=== PATIENT | male | born 1965 | race Caucasian/White ===

== ENCOUNTER 2019-10-13 20:06 | Emergency (ER) | payer OTHER, SELFPAY ==
--- OUTSIDE RECORDS SUMMARY | 2019-10-13 20:09 | XMS REPORT ---
:1965 [facility] Address [address] [place] [address] Dr. Ernandez [address] [place] [id number] Care Team Providers Name Role Phone DR ANA JURADO Unavailable Unavailable BREANNA VELÁZQUEZ Unavailable Unavailable OSWALDO GASTELUM Unavailable Unavailable ALLYSON LAIRD Unavailable Unavailable Problems This patient has no known problems. Allergies, Adverse Reactions, Alerts This patient has no known allergies or adverse reactions. Medications This patient has no known medications. Encounters Start End Encounter Admission Attending Care Care Encounter Date/Time Date/Time Type Type Clinicians Facility Department ID 2019-06-22 2019-06-22 [place] [facility] [id number] 10:21:00 23:59:00 ANA Results Test Description Test Time Test Comments Text Results Atomic Results Result Comments CHEST 2 VIEW*GP* 2019-06-22 10:56:45 PA and lateral chest, 2 viewsLocation code: [id number] HISTORY: Chest painCOMPARISON: NoneCOMMENTS: The lungs are clear and well inflated. The costophrenic angles aresharp. The cardiomediastinal silhouette is unremarkable. Left chest dual-leadpacer is noted. The bones are intact.IMPRESSION: No acute abnormality B-TYPE NATRIURETIC FACTOR (BNP) 2018-07-07 07:59:00 Test Item Value Reference Range Comments B-TYPE NATRIURETIC PEPTIDE (BEAKER) (test fvdk=018) < pg/mL 0-100 TROPONIN [id number] 07:49:00 Test Item Value Reference Range Comments TROPONIN I (BEAKER) (test hvzp=228) < ng/mL 0.00-0.03 Troponin I (TnI) levels must be interpreted in the context of the presenting symptoms and the clinical findings. Elevated TnI levels indicate myocardial damage, but are not specific for ischemic heart disease. Elevated TnI levels are seen in patients with other cardiac conditions (including myocarditis and congestive heart failure), and slight TnI elevations occur in patients with other conditions, including sepsis, renal failure, acidosis, acute neurological disease, and persistent tachyarrhythmia.[id number] 07:40:00 Test Item Value Reference Range Comments PHOSPHORUS (BEAKER) (test wwfi=438) 3.6 mg/dL 2.3-4.7 [id number] 07:40:00 Test Item Value Reference Range Comments MAGNESIUM (BEAKER) (test intx=222) 2.1 mg/dL 1.6-2.6 BASIC METABOLIC [id number] 07:40:00 Test Item Value Reference Range Comments SODIUM (BEAKER) (test 137 meq/L 136-145 kafr=447) POTASSIUM (BEAKER) (test 3.9 meq/L 3.5-5.1 gghe=872) CHLORIDE (BEAKER) (test 104 meq/L 98-107 dcce=045) CO2 (BEAKER) (test 21 meq/L 22-29 sbmi=957) BLOOD UREA NITROGEN 13 mg/dL 7-21 (BEAKER) (test wgyh=886) CREATININE (BEAKER) (test 1.23 mg/dL 0.57-1.25 txxv=339) GLUCOSE RANDOM (BEAKER) 101 mg/dL 70-105 (test vghv=988) CALCIUM (BEAKER) (test 9.3 mg/dL 8.4-10.2 zfbr=829) EGFR (BEAKER) (test 62 mL/min/1.73 sq m ESTIMATED GFR IS NOT qvju=0457) ACCURATE CREATININE CLEARANCE IN PREDICTING GLOMERULAR FILTRATION RATE. ESTIMATED GFR IS NOT APPLICABLE FOR DIALYSIS PATIENTS. TROPONIN [id number] 00:04:00 Test Item Value Reference Range Comments TROPONIN I (BEAKER) (test xplx=778) < ng/mL 0.00-0.03 Troponin I (TnI) levels must be interpreted in the context of the presenting symptoms and the clinical findings. Elevated TnI levels indicate myocardial damage, but are not specific for ischemic heart disease. Elevated TnI levels are seen in patients with other cardiac conditions (including myocarditis and congestive heart failure), and slight TnI elevations occur in patients with other conditions, including sepsis, renal failure, acidosis, acute neurological disease, and persistent tachyarrhythmia.CREATINE KINASE (CK), TOTAL AND [id number] 15:59:00 Test Item Value Reference Range Comments CREATINE KINASE TOTAL (BEAKER) (test vjqp=409) 157 U/L 29-200 CREATINE KINASE-MB (BEAKER) (test hfve=926) 2.5 ng/mL 0.0-6.6 CREATINE KINASE-MB INDEX (BEAKER) (test cgzs=737) 1.6 % CK-MB Reference Range:<6.7 Normal6.7-10.0 Borderline>10.0 AbnormalTROPONIN [id number] 15:59:00 Test Item Value Reference Range Comments TROPONIN I (BEAKER) (test snnc=909) < ng/mL 0.00-0.03 Troponin I (TnI) levels must be interpreted in the context of the presenting symptoms and the clinical findings. Elevated TnI levels indicate myocardial damage, but are not specific for ischemic heart disease. Elevated TnI levels are seen in patients with other cardiac conditions (including myocarditis and congestive heart failure), and slight TnI elevations occur in patients with other conditions, including sepsis, renal failure, acidosis, acute neurological disease, and persistent tachyarrhythmia.BASIC METABOLIC [id number] 15:50:00 Test Item Value Reference Range Comments SODIUM (BEAKER) (test 138 meq/L 136-145 yxmq=940) POTASSIUM (BEAKER) (test 3.8 meq/L 3.5-5.1 tycd=042) CHLORIDE (BEAKER) (test 105 meq/L 98-107 ukai=773) CO2 (BEAKER) (test 21 meq/L 22-29 wqyi=248) BLOOD UREA NITROGEN 11 mg/dL 7-21 (BEAKER) (test jwil=795) CREATININE (BEAKER) (test 1.25 mg/dL 0.57-1.25 apgy=599) GLUCOSE RANDOM (BEAKER) 145 mg/dL 70-105 (test oazr=094) CALCIUM (BEAKER) (test 9.7 mg/dL 8.4-10.2 mlfk=580) EGFR (BEAKER) (test 61 mL/min/1.73 sq m ESTIMATED GFR IS NOT xrlw=3835) ACCURATE CREATININE CLEARANCE IN PREDICTING GLOMERULAR FILTRATION RATE. ESTIMATED GFR IS NOT APPLICABLE FOR DIALYSIS PATIENTS. CBC W/PLT COUNT & AUTO [id number] 15:28:00 Test Item Value Reference Range Comments WHITE BLOOD CELL COUNT (BEAKER) (test lvqq=086) 6.2 K/ L 3.5-10.5 RED BLOOD CELL COUNT (BEAKER) (test mpzk=709) 5.60 M/ L 4.63-6.08 HEMOGLOBIN (BEAKER) (test grjk=205) 17.2 GM/DL 13.7-17.5 HEMATOCRIT (BEAKER) (test lkva=916) 50.2 % 40.1-51.0 MEAN CORPUSCULAR VOLUME (BEAKER) (test svql=636) 89.6 fL 79.0-92.2 MEAN CORPUSCULAR HEMOGLOBIN (BEAKER) (test 30.7 pg 25.7-32.2 tkny=838) MEAN CORPUSCULAR HEMOGLOBIN CONC (BEAKER) (test 34.3 GM/DL 32.3-36.5 cjms=242) RED CELL DISTRIBUTION WIDTH (BEAKER) (test 12.3 % 11.6-14.4 lwiw=298) PLATELET COUNT (BEAKER) (test kjlu=050) 189 K/CU MM 150-450 MEAN PLATELET VOLUME (BEAKER) (test vskl=069) 9.6 fL 9.4-12.4 NUCLEATED RED BLOOD CELLS (BEAKER) (test 0 /100 WBC 0-0 hwfe=066) NEUTROPHILS RELATIVE PERCENT (BEAKER) (test 56 % hnit=088) LYMPHOCYTES RELATIVE PERCENT (BEAKER) (test 34 % wxsx=333) MONOCYTES RELATIVE PERCENT (BEAKER) (test 5 % exxf=271) EOSINOPHILS RELATIVE PERCENT (BEAKER) (test 4 % iqof=453) BASOPHILS RELATIVE PERCENT (BEAKER) (test 1 % utgm=832) NEUTROPHILS ABSOLUTE COUNT (BEAKER) (test 3.47 K/ L 1.78-5.38 wdif=467) LYMPHOCYTES ABSOLUTE COUNT (BEAKER) (test 2.09 K/ L 1.32-3.57 kgqb=519) MONOCYTES ABSOLUTE COUNT (BEAKER) (test 0.30 K/ L 0.30-0.82 famj=434) EOSINOPHILS ABSOLUTE COUNT (BEAKER) (test 0.23 K/ L 0.04-0.54 mnqn=290) BASOPHILS ABSOLUTE COUNT (BEAKER) (test 0.05 K/ L 0.01-0.08 ihlf=429) IMMATURE GRANULOCYTES-RELATIVE PERCENT (BEAKER) 0 % 0-1 (test cbhv=8975) RAD, CHEST, 1 VIEW, NON [id number] 15:27:00Reason for exam:->CHEST PAINShould this be performed at the bedside?->YesFINAL REPORT EXAM: Frontal chest radiograph HISTORY PROVIDED: Chest pain COMPARISON : 01/29/2018 IMPRESSION:There is biapical pleural-parenchymal nodular thickening which can be further evaluated with CT if not already performed. There is elevation of the right hemidiaphragm. Unchanged left chest wall pacing device with the lead tip projecting over the right atrium and right ventricle. There are prominent interstitial markings bilaterally as before. No pneumothorax or significant pleural fluid. The cardiac silhouette is prominent at least partially explained by AP technique. No acute osseous abnormality. Signed: Arvin Padgett MDReport Verified Date/Time: 07/06/2018 15:27:17 Reading Location: [facility] Reading Room Electronically signed by: ARVIN PADGETT on07/06/2018 03:27 PMRAD, CHEST, 1 VIEW, NON [id number] 08:26: 00Reason for exam:->PPM placementFINAL REPORT Comparison: 01/28/2018 TECHNIQUE: Single view of the chest FINDINGS: Lung volumes are low, grossly clear. Cardiac silhouette is magnified by technique. Left- sided pacing device again noted. Signed: Moisés Elizabeth MDReport Verified Date/Time : 01/29/2018 08:26:05 Reading Location: [address] Reading Room Electronically signed by: MOISÉS ELIZABETH M.D. on01/29/2018 08:26 [id number] 04:52:00 Test Item Value Reference Range Comments SODIUM (BEAKER) (test avwj=513) 138 meq/L 136-145 POTASSIUM (BEAKER) (test jyrb=940) 3.9 meq/L 3.5-5.1 CHLORIDE (BEAKER) (test nywk=310) 104 meq/L 98-107 CO2 (BEAKER) (test igyd=129) 26 meq/L 22-29 BUN AND [id number] 04:52:00 Test Item Value Reference Range Comments BLOOD UREA NITROGEN 13 mg/dL 7-21 (BEAKER) (test ftyd=133) CREATININE (BEAKER) (test 1.16 mg/dL 0.57-1.25 rulz=602) EGFR (BEAKER) (test 67 mL/min/1.73 sq m ESTIMATED GFR IS NOT pbtk=9356) ACCURATE CREATININE CLEARANCE IN PREDICTING GLOMERULAR FILTRATION RATE. ESTIMATED GFR IS NOT APPLICABLE FOR DIALYSIS PATIENTS. CBC (HEMOGRAM ONLY)2018-01-29 04:26:00 Test Item Value Reference Range Comments WHITE BLOOD CELL COUNT (BEAKER) (test ctel=581) 8.6 K/ L 3.5-10.5 RED BLOOD CELL COUNT (BEAKER) (test nsah=739) 4.74 M/ L 4.63-6.08 HEMOGLOBIN (BEAKER) (test xaom=243) 14.6 GM/DL 13.7-17.5 HEMATOCRIT (BEAKER) (test bxqf=234) 42.1 % 40.1-51.0 MEAN CORPUSCULAR VOLUME (BEAKER) (test boxb=550) 88.8 fL 79.0-92.2 MEAN CORPUSCULAR HEMOGLOBIN (BEAKER) (test 30.8 pg 25.7-32.2 byzd=918) MEAN CORPUSCULAR HEMOGLOBIN CONC (BEAKER) (test 34.7 GM/DL 32.3-36.5 ppww=722) RED CELL DISTRIBUTION WIDTH (BEAKER) (test 12.5 % 11.6-14.4 jqdn=026) PLATELET COUNT (BEAKER) (test hnye=367) 187 K/CU MM 150-450 MEAN PLATELET VOLUME (BEAKER) (test xgzg=668) 9.7 fL 9.4-12.4 NUCLEATED RED BLOOD CELLS (BEAKER) (test 0 /100 WBC 0-0 pmvx=259) RAD, CHEST, 1 VIEW, NON [id number] 16:17:00Reason for exam:->PPM placementFINAL REPORT TECHNIQUE: Frontal chest radiograph dated 01/28/2018. CLINICAL HISTORY: PPM placement COMPARISON STUDY: Chest radiograph dated 08/26/2017 IMPRESSION:There has been interval placement of a dual chamber, left-sided pacemaker. There are ill-defined airspace opacities which are likely pulmonary edema. No pleural effusion or pneumothorax. Cardiomediastinal silhouette is normal in size. No fracture. Signed: Aiyana Neumann MDReport Verified Date/Time: 01/28/2018 16:17:36 Reading Location: [facility] Radiology Reading Room HEMOGLOBIN [id number] 09:35:00 Test Item Value Reference Range Comments HEMOGLOBIN A1C (BEAKER) (test dzcg=513) 5.2 % 4.3-6.1 [id number] 07:00:00 Test Item Value Reference Range Comments MAGNESIUM (BEAKER) (test wroo=171) 2.0 mg/dL 1.6-2.6 BASIC METABOLIC [id number] 07:00:00 Test Item Value Reference Range Comments SODIUM (BEAKER) (test 138 meq/L 136-145 unia=875) POTASSIUM (BEAKER) (test 3.5 meq/L 3.5-5.1 jwar=021) CHLORIDE (BEAKER) (test 107 meq/L 98-107 ufne=577) CO2 (BEAKER) (test 22 meq/L 22-29 xnvl=991) BLOOD UREA NITROGEN 18 mg/dL 7-21 (BEAKER) (test svig=953) CREATININE (BEAKER) (test 1.40 mg/dL 0.57-1.25 seri=290) GLUCOSE RANDOM (BEAKER) 104 mg/dL 70-105 (test ifcc=447) CALCIUM (BEAKER) (test 8.7 mg/dL 8.4-10.2 vcga=262) EGFR (BEAKER) (test 54 mL/min/1.73 sq m ESTIMATED GFR IS NOT kanc=7524) ACCURATE CREATININE CLEARANCE IN PREDICTING GLOMERULAR FILTRATION RATE. ESTIMATED GFR IS NOT APPLICABLE FOR DIALYSIS PATIENTS. TROPONIN [id number] 06:36:00 Test Item Value Reference Range Comments TROPONIN I (BEAKER) (test awcc=831) < ng/mL 0.00-0.03 Troponin I (TnI) levels must be interpreted in the context of the presenting symptoms and the clinical findings. Elevated TnI levels indicate myocardial damage, but are not specific for ischemic heart disease. Elevated TnI levels are seen in patients with other cardiac conditions (including myocarditis and congestive heart failure), and slight TnI elevations occur in patients with other conditions, including sepsis, renal failure, acidosis, acute neurological disease, and persistent tachyarrhythmia.TROPONIN [id number] 00:58:00 Test Item Value Reference Range Comments TROPONIN I (BEAKER) (test nznf=189) 0.01 ng/mL 0.00-0.03 Troponin I (TnI) levels must be interpreted in the context of the presenting symptoms and the clinical findings. Elevated TnI levels indicate myocardial damage, but are not specific for ischemic heart disease. Elevated TnI levels are seen in patients with other cardiac conditions (including myocarditis and congestive heart failure), and slight TnI elevations occur in patients with other conditions, including sepsis, renal failure, acidosis, acute neurological disease, and persistent tachyarrhythmia.LIPID [id number] 19:53:00 Test Item Value Reference Range Comments TRIGLYCERIDES (BEAKER) (test tnns=866) 133 mg/dL CHOLESTEROL (AKER) (test tqtu=275) 143 mg/dL HDL CHOLESTEROL (AKER) (test btyu=570) 32 mg/dL LDL CHOLESTEROL CALCULATED (AKER) (test 84 mg/dL trlu=463) Triglyceride Reference Range: Low Risk <150 Borderline 150- 199 High Risk 200-499 Very High Risk >=500Cholesterol Reference Range: Low Risk <200 Borderline 200-239 High Risk > 240HDL Cholesterol Reference Range: Low Risk >=60 High Risk <40LDL Cholesterol Reference Range: Optimal <100 Near Optimal 100-129 Borderline 130-159 High 160-189 Very High >=190B-TYPE NATRIURETIC FACTOR (BNP)2017-08-26 16:46:00 Test Item Value Reference Range Comments B-TYPE NATRIURETIC PEPTIDE (BEAKER) (test qyqu=707) 50 pg/mL 0-100 CREATINE KINASE (CK), TOTAL AND [id number] 16:46:00 Test Item Value Reference Range Comments CREATINE KINASE TOTAL (BEAKER) (test dfat=429) 243 U/L 29-200 CREATINE KINASE-MB (BEAKER) (test zpbb=940) 2.2 ng/mL 0.0-6.6 CREATINE KINASE-MB INDEX (BEAKER) (test eteo=557) 0.9 % CK-MB Reference Range:<6.7 Normal6.7-10.0 Borderline>10.0 AbnormalTROPONIN [id number] 16:46:00 Test Item Value Reference Range Comments TROPONIN I (BEAKER) (test qhhw=734) < ng/mL 0.00-0.03 Troponin I (TnI) levels must be interpreted in the context of the presenting symptoms and the clinical findings. Elevated TnI levels indicate myocardial damage, but are not specific for ischemic heart disease. Elevated TnI levels are seen in patients with other cardiac conditions (including myocarditis and congestive heart failure), and slight TnI elevations occur in patients with other conditions, including sepsis, renal failure, acidosis, acute neurological disease, and persistent tachyarrhythmia.[id number] 16:39:00 Test Item Value Reference Range Comments MAGNESIUM (BEAKER) (test 2.2 mg/dL 1.6-2.6 Specimen slightly hemolyzed vlrn=971) BASIC METABOLIC [id number] 16:39:00 Test Item Value Reference Range Comments SODIUM (BEAKER) (test 140 meq/L 136-145 xmtv=111) POTASSIUM (BEAKER) (test 3.9 meq/L 3.5-5.1 Specimen slightly onpp=460) hemolyzed CHLORIDE (BEAKER) (test 109 meq/L 98-107 tidr=772) CO2 (BEAKER) (test 21 meq/L 22-29 iqgr=979) BLOOD UREA NITROGEN 18 mg/dL 7-21 (BEAKER) (test uhme=868) CREATININE (BEAKER) (test 1.63 mg/dL 0.57-1.25 Specimen slightly pgpm=251) hemolyzed GLUCOSE RANDOM (BEAKER) 101 mg/dL 70-105 (test wvit=321) CALCIUM (BEAKER) (test 9.7 mg/dL 8.4-10.2 mjyi=149) EGFR (BEAKER) (test 45 mL/min/1.73 sq m ESTIMATED GFR IS NOT liey=2797) ACCURATE CREATININE CLEARANCE IN PREDICTING GLOMERULAR FILTRATION RATE. ESTIMATED GFR IS NOT APPLICABLE FOR DIALYSIS PATIENTS. CBC W/PLT COUNT & AUTO [id number] 16:05:00 Test Item Value Reference Range Comments WHITE BLOOD CELL COUNT (BEAKER) (test aapj=696) 7.7 K/ L 3.5-10.5 RED BLOOD CELL COUNT (BEAKER) (test jrpc=098) 4.91 M/ L 4.63-6.08 HEMOGLOBIN (BEAKER) (test fght=820) 15.5 GM/DL 13.7-17.5 HEMATOCRIT (BEAKER) (test unbj=072) 44.5 % 40.1-51.0 MEAN CORPUSCULAR VOLUME (BEAKER) (test urnh=821) 90.6 fL 79.0-92.2 MEAN CORPUSCULAR HEMOGLOBIN (BEAKER) (test 31.6 pg 25.7-32.2 emdn=528) MEAN CORPUSCULAR HEMOGLOBIN CONC (BEAKER) (test 34.8 GM/DL 32.3-36.5 xqqb=209) RED CELL DISTRIBUTION WIDTH (BEAKER) (test 12.3 % 11.6-14.4 hyeq=860) PLATELET COUNT (BEAKER) (test ndnx=286) 247 K/CU MM 150-450 MEAN PLATELET VOLUME (BEAKER) (test pwnv=226) 10.1 fL 9.4-12.4 NUCLEATED RED BLOOD CELLS (BEAKER) (test 0 /100 WBC 0-0 qvsz=988) NEUTROPHILS RELATIVE PERCENT (BEAKER) (test 64 % iikz=586) LYMPHOCYTES RELATIVE PERCENT (BEAKER) (test 25 % sitm=680) MONOCYTES RELATIVE PERCENT (BEAKER) (test 8 % pxkw=974) EOSINOPHILS RELATIVE PERCENT (BEAKER) (test 2 % cqbu=883) BASOPHILS RELATIVE PERCENT (BEAKER) (test 0 % dppw=739) NEUTROPHILS ABSOLUTE COUNT (BEAKER) (test 4.95 K/ L 1.78-5.38 ofgb=874) LYMPHOCYTES ABSOLUTE COUNT (BEAKER) (test 1.92 K/ L 1.32-3.57 kjit=253) MONOCYTES ABSOLUTE COUNT (BEAKER) (test 0.62 K/ L 0.30-0.82 pquz=427) EOSINOPHILS ABSOLUTE COUNT (BEAKER) (test 0.16 K/ L 0.04-0.54 naoe=658) BASOPHILS ABSOLUTE COUNT (BEAKER) (test 0.01 K/ L 0.01-0.08 ffcn=304) IMMATURE GRANULOCYTES-RELATIVE PERCENT (BEAKER) 1 % 0-1 (test doys=8015) PT/[id number] 15:58:00 Test Item Value Reference Range Comments PROTIME (BEAKER) (test qswh=909) 13.5 seconds 11.7-14.7 INR (BEAKER) (test blrb=308) 1.0 <=5.9 PARTIAL THROMBOPLASTIN TIME (BEAKER) (test 27.0 seconds 22.5-36.0 sctq=628) RECOMMENDED COUMADIN/WARFARIN INR THERAPY RANGESSTANDARD DOSE: 2.0 - 3.0 Includes: PROPHYLAXIS forvenous thrombosis, systemic embolization; TREATMENT for venous thrombosis and/or pulmonary embolus.HIGH RISK: Target INR is 2.5-3.5 for patients with mechanical heart valves.RAD, CHEST, 1 VIEW, NON [id number] 15:47:00Reason for exam:->CHEST PAINFINAL REPORT Chest, frontal, 2 images. History provided: Chest pain. Comparison: 09/25/2007. Findings: The lungs are clear without evidence of focal consolidation. No pneumothoraxor significant pleural fluid is identified. The cardiomediastinal silhouette is within normal limits. No acute osseous abnormality is identified. The soft tissues are unremarkable. IMPRESSION: No acutecardiopulmonary disease. Signed: Arvin Padgett MDReport Verified Date/Time: 08/26/2017 15:47:33 Reading Location: [facility] Reading Room
[2019-10-13] MEDS ORDERED: ASPIRIN 81 MG CHEWABLE TABLET ONE (20:47)
[2019-10-13] MEDS ORDERED: MORPHINE 4 MG/ML SYR ONE (20:48)
[2019-10-13] MEDS ORDERED: ONDANSETRON 4 MG/2 ML VIAL ONE (20:48)
[2019-10-13] MEDS ORDERED: ENOXAPARIN 100 MG/ML SYR SQ ONE (20:48)
[2019-10-13] MEDS ORDERED: METOPROLOL TAR 50 MG TAB ONE (20:48)
[2019-10-13] MEDS ORDERED: FAMOTIDINE 20 MG/2 ML VIAL IV ONE (20:49)
[2019-10-13] MEDS ORDERED: ENOXAPARIN 30 MG/0.3 ML SQ ONE (20:49)
[2019-10-13 20:52] LABS: Absolute Lymphocytes (CBC) 2.4 K/uL (0.7-4.9); Basophils % 1.1 % (0-1.3); Hematocrit 49.4 % (39.6-49.0); Lymphocytes % 35.6 % (15.3-44.8); MPV 8.6 fL (7.6-11.3); Protime INR 0.98; RBC Red Blood Cell Count 5.41 M/uL (4.33-5.43)
--- NOTE | 2019-10-13 21:05 | ER ---
Nurse's Notes [facility] Name: Teodoro Kwon Age: 53 yrs Sex: Male : 1965 Arrival Date: 10/13/2019 Time: 20:17 Bed 13 Private MD: Diagnosis: Chest pain, unspecified;Angina pectoris;Essential (primary) hypertension;Obesity, unspecified Presentation: 10/13 20:22 Presenting complaint: Patient states: Reports he started having off and on chest pain ea since yesterday, pt reports he took a nitro today around 6 PM without relief. Pt reports the pain feels like crushing sharp pain and it radiated to right arm. Pain rated 8/10. Transition of care: patient was not received from another setting of care. Onset of symptoms was October 13, 2019. Risk Assessment: Do you want to hurt yourself or someone else? Patient reports no desire to harm self or others. Initial Sepsis Screen: Does the patient meet any 2 criteria? No. Patient's initial sepsis screen is negative. Does the patient have a suspected source of infection? No. Patient's initial sepsis screen is negative. Care prior to arrival: Medication(s) given: nitro. 20:22 Method Of Arrival: Wheelchair ea 20:22 Acuity: CARIDAD 3 ea Historical: - Allergies: 20:26 Iodine; ea 20:26 SHELLFISH; ea 20:26 Adhesives; ea - Home Meds: 21:27 aspirin 81 mg Oral chew 1 tab once daily [Active]; metoprolol tartrate 25 mg Oral tab 1 ca1 tab once daily [Active]; fenofibrate 160 mg oral tab 1 tab once daily [Active]; atorvastatin 40 mg oral tab 1 tab once daily [Active]; furosemide 40 mg Oral tab 1 tab once daily [Active]; hydralazine 50 mg Oral tab 1 tab daily [Active]; isosorbide mononitrate 30 mg Oral Tb24 1 tab once daily [Active]; BRILINTA 90 mg oral tab 1 tab daily [Active]; amlodipine 5 mg tab 1 tab once daily [Active]; - PMHx: 20:26 Hypertension; Hyperlipidemia; ea - PSHx: 20:26 L bicep repair; ankle repair; Lumbar fusion; Appendectomy; Heart stents; ea - Immunization history:: Adult Immunizations up to date. - Social history:: Smoking status: Patient uses tobacco products, denies chronic smoking, but will smoke occasionally. - Ebola Screening: : No symptoms or risks identified at this time. - Family history:: not pertinent. Screenin:33 Abuse screen: Denies threats or abuse. Denies injuries from another. Nutritional ca1 screening: No deficits noted. Tuberculosis screening: No symptoms or risk factors identified. Fall Risk None identified. Assessment: 20:33 General: Appears in no apparent distress. comfortable, Behavior is calm, cooperative, ca1 appropriate for age. Pain: Complains of pain in chest Pain radiates to left arm Pain currently is 3 out of 10 on a pain scale. at worst was 8 out of 10 on a pain scale. Quality of pain is described as crushing, heavy, sharp, Pain began 1 day ago. Is intermittent. Neuro: Level of Consciousness is awake, alert, obeys commands, Oriented to person, place, time, situation. Neuro: Reports dizziness. Cardiovascular: Reports lightheadedness. Cardiovascular: Heart tones S1 S2 present Capillary refill < 3 seconds Patient's skin is warm and dry. Rhythm is Respiratory: Airway is patent Respiratory effort is even, unlabored, Respiratory pattern is regular, symmetrical, Breath sounds are clear bilaterally. GI: Abdomen is round non-distended, obese, Bowel sounds present X 4 quads. Abd is soft and non tender X 4 quads. Reports nausea. : No deficits noted. No signs and/or symptoms were reported regarding the genitourinary system. EENT: No deficits noted. No signs and/or symptoms were reported regarding the EENT system. Derm: Skin is intact, is healthy with good turgor, Skin is pink, warm \T\ dry. Musculoskeletal: Circulation, motion, and sensation intact. Capillary refill < 3 seconds, Range of motion: intact in all extremities. 21:25 Reassessment: Patient appears in no apparent distress at this time. Patient and/or ca1 family updated on plan of care and expected duration. Pain level reassessed. Patient is alert, oriented x 3, equal unlabored respirations, skin warm/dry/pink. 22:30 Reassessment: Patient appears in no apparent distress at this time. No changes from wh previously documented assessment. Patient and/or family updated on plan of care and expected duration. Pain level reassessed. Patient is alert, oriented x 3, equal unlabored respirations, skin warm/dry/pink. 23:47 Reassessment: Patient appears in no apparent distress at this time. No changes from previously documented assessment. Patient and/or family updated on plan of care and expected duration. Pain level reassessed. Patient is alert, oriented x 3, equal unlabored respirations, skin warm/dry/pink. Report Given to Amy Howe RN Patient denies pain at this time. Vital Signs: 20:24 BP 159 / 97; Pulse 84; Resp 23; Temp 98.7; Pulse Ox 98% on R/A; Weight 136.08 kg; ea Height 6 ft. (182.88 cm); Pain 8/10; 21:17 BP 153 / 96; Pulse 74; Resp 16; Pulse Ox 97% on R/A; wh 22:30 BP 134 / 95; Pulse 60; Resp 16; Pulse Ox 96% on R/A; wh 23:48 BP 143 / 107; Pulse 59; Resp 15; Pulse Ox 98% ; wh 20:24 Body Mass Index 40.69 (136.08 kg, 182.88 cm) ED Course: 20:17 Patient arrived in ED. cf2 20:21 Marcia Tapia, JOEY is Primary Nurse. ca1 20:24 Triage completed. ea 20:25 Arm band placed on right wrist. Patient placed in an exam room, on a stretcher, on ea surveillance system monitor, on pulse oximetry. 20:32 No provider procedures requiring assistance completed. Initial lab(s) drawn, by ma, ca1 sent to lab. Inserted saline lock: 20 gauge in right antecubital area, using aseptic technique. Blood collected. Patient maintains SpO2 saturation greater than 95% on room air. 20:33 Patient has correct armband on for positive identification. Placed in gown. Bed in low ca1 position. Call light in reach. Side rails up X2. monitoring manager on. Pulse ox on. NIBP on. Warm blanket given. 20:41 Fausto Zapata MD is Attending Physician. [facility] 20:48 XRAY Chest (1 view) In Process Unspecified. EDMS 22:03 Report given to JOEY Rivera. ca1 23:51 Patient transferred, IV remains in place. Administered Medications: 20:45 Drug: Aspirin Chewable Tablet 324 mg Route: PO; ca1 22:02 Follow up: Response: No adverse reaction ca1 20:45 Drug: Lopressor (metoprolol TARTRATE) 50 mg Route: PO; ca1 22:02 Follow up: Response: No adverse reaction ca1 20:47 Drug: Zofran 4 mg Route: IVP; Site: right antecubital; ca1 22:02 Follow up: Response: No adverse reaction; Nausea is decreased ca1 20:50 Drug: morphine 2 mg {Note: RASS - 0.} Route: IVP; Site: right antecubital; ca1 20:52 Drug: Pepcid 20 mg Route: IVP; Site: right antecubital; ca1 22:02 Follow up: Response: No adverse reaction ca1 21:00 Drug: Lovenox 1 mg/kg Route: Sub-Q; Site: abdomen; ca1 22:02 Follow up: Response: No adverse reaction ca1 21:03 Drug: PlaVIX 300 mg Route: PO; ca1 22:03 Follow up: Response: No adverse reaction ca1 21:04 Drug: morphine 2 mg Route: IVP; Site: right antecubital; ca1 22:02 Follow up: Response: No adverse reaction; Pain is decreased; RASS: Alert and Calm (0) ca1 22:43 Drug: morphine 2 mg Route: IVP; Site: right antecubital; 23:51 Follow up: Response: No adverse reaction; Pain is decreased; RASS: Alert and Calm (0) Outcome: 21:04 ER care complete, transfer ordered by MD. garcia 23:50 Transferred by ground EMS to [facility], Transfer form completed. X-rays sent w/ patient. Note: Report given to [facility] 23:50 Condition: stable 23:50 Instructed on the need for transfer. 23:52 Patient left the ED. Signatures: Dispatcher [employer] EDAR Fausto Zapata MD MD cha Antunez, Elena RN Miguel Preston ea Marcia Tapia RN RN ca1 Frazier, Celesta cf2 Corrections: (The following items were deleted from the chart) 20:38 20:33 Cardiovascular: Heart tones S1 S2 present Capillary refill < 3 seconds Patient's ca1 skin is warm and dry. Rhythm is sinus rhythm ca1
--- NOTE | 2019-10-13 21:06 | EDPHYS ---
Physician Documentation [facility] Name: Teodoro Kwon Age: 53 yrs Sex: Male : 1965 Arrival Date: 10/13/2019 Time: 20:17 Bed 13 Private MD: ED Physician Fausto Zapata HPI: 10/13 21:00 This 53 yrs old Male presents to ER via Wheelchair with complaints of Chest jose Pain. 21:00 The patient or guardian reports chest pain that is located primarily in the substernal jose area. Onset: yesterday. The pain radiates to the left arm. Associated signs and symptoms: Pertinent positives: dizziness, lightheadedness, nausea, shortness of breath. The chest pain is described as a heaviness, a pressure. Duration: The patient or guardian reports multiple episodes, with no pattern. Severity of pain: At its worst the pain was moderate in the emergency department the pain is unchanged. The patient has not experienced similar symptoms in the past. Historical: - Allergies: 20:26 Iodine; ea 20:26 SHELLFISH; ea 20:26 Adhesives; ea - Home Meds: 21:27 aspirin 81 mg Oral chew 1 tab once daily [Active]; metoprolol tartrate 25 mg Oral tab 1 ca1 tab once daily [Active]; fenofibrate 160 mg oral tab 1 tab once daily [Active]; atorvastatin 40 mg oral tab 1 tab once daily [Active]; furosemide 40 mg Oral tab 1 tab once daily [Active]; hydralazine 50 mg Oral tab 1 tab daily [Active]; isosorbide mononitrate 30 mg Oral Tb24 1 tab once daily [Active]; BRILINTA 90 mg oral tab 1 tab daily [Active]; amlodipine 5 mg tab 1 tab once daily [Active]; - PMHx: 20:26 Hypertension; Hyperlipidemia; ea - PSHx: 20:26 L bicep repair; ankle repair; Lumbar fusion; Appendectomy; Heart stents; ea - Immunization history:: Adult Immunizations up to date. - Social history:: Smoking status: Patient uses tobacco products, denies chronic smoking, but will smoke occasionally. - Ebola Screening: : No symptoms or risks identified at this time. - Family history:: not pertinent. ROS: 21:01 Constitutional: Negative for fever, chills, and weight loss, Eyes: Negative for injury, jose pain, redness, and discharge, ENT: Negative for injury, pain, and discharge, Neck: Negative for injury, pain, and swelling, Respiratory: Negative for shortness of breath, cough, wheezing, and pleuritic chest pain, Abdomen/GI: Negative for abdominal pain, nausea, vomiting, diarrhea, and constipation, Back: Negative for injury and pain, : Negative for injury, bleeding, discharge, and swelling, MS/Extremity: Negative for injury and deformity, Skin: Negative for injury, rash, and discoloration, Neuro: Negative for headache, weakness, numbness, tingling, and seizure, Psych: Negative for depression, anxiety, suicide ideation, homicidal ideation, and hallucinations, Allergy/Immunology: Negative for hives, rash, and allergies, Endocrine: Negative for neck swelling, polydipsia, polyuria, polyphagia, and marked weight changes, Hematologic/Lymphatic: Negative for swollen nodes, abnormal bleeding, and unusual bruising. 21:01 Cardiovascular: Positive for chest pain, of the chest. Exam: 21:01 Constitutional: This is a well developed, well nourished patient who is awake, alert, jose and in no acute distress. Head/Face: Normocephalic, atraumatic. Eyes: Pupils equal round and reactive to light, extra-ocular motions intact. Lids and lashes normal. Conjunctiva and sclera are non-icteric and not injected. Cornea within normal limits. Periorbital areas with no swelling, redness, or edema. ENT: Nares patent. No nasal discharge, no septal abnormalities noted. Tympanic membranes are normal and external auditory canals are clear. Oropharynx with no redness, swelling, or masses, exudates, or evidence of obstruction, uvula midline. Mucous membranes moist. Neck: Trachea midline, no thyromegaly or masses palpated, and no cervical lymphadenopathy. Supple, full range of motion without nuchal rigidity, or vertebral point tenderness. No Meningismus. Chest/axilla: Normal chest wall appearance and motion. Nontender with no deformity. No lesions are appreciated. Cardiovascular: Regular rate and rhythm with a normal S1 and S2. No gallops, murmurs, or rubs. Normal PMI, no JVD. No pulse deficits. Respiratory: Lungs have equal breath sounds bilaterally, clear to auscultation and percussion. No rales, rhonchi or wheezes noted. No increased work of breathing, no retractions or nasal flaring. Abdomen/GI: Soft, non-tender, with normal bowel sounds. No distension or tympany. No guarding or rebound. No evidence of tenderness throughout. Back: No spinal tenderness. No costovertebral tenderness. Full range of motion. Male : Normal genitalia with no discharge or lesions. Skin: Warm, dry with normal turgor. Normal color with no rashes, no lesions, and no evidence of cellulitis. MS/ Extremity: Pulses equal, no cyanosis. Neurovascular intact. Full, normal range of motion. Neuro: Awake and alert, GCS 15, oriented to person, place, time, and situation. Cranial nerves II-XII grossly intact. Motor strength 5/5 in all extremities. Sensory grossly intact. Cerebellar exam normal. Normal gait. Psych: Awake, alert, with orientation to person, place and time. Behavior, mood, and affect are within normal limits. Vital Signs: 20:24 BP 159 / 97; Pulse 84; Resp 23; Temp 98.7; Pulse Ox 98% on R/A; Weight 136.08 kg; ea Height 6 ft. (182.88 cm); Pain 8/10; 21:17 BP 153 / 96; Pulse 74; Resp 16; Pulse Ox 97% on R/A; wh 22:30 BP 134 / 95; Pulse 60; Resp 16; Pulse Ox 96% on R/A; wh 23:48 BP 143 / 107; Pulse 59; Resp 15; Pulse Ox 98% ; wh 20:24 Body Mass Index 40.69 (136.08 kg, 182.88 cm) ea MDM: 20:41 Patient medically screened. [facility] 21:02 Data reviewed: vital signs, nurses notes, lab test result(s), EKG, radiologic studies, jose plain films. 10/13 20:30 Order name: Basic Metabolic Panel; Complete Time: : 10/13 20:30 Order name: CBC with Diff; Complete Time: : 10/13 20:30 Order name: LFT's; Complete Time: : 10/13 20:30 Order name: Magnesium; Complete Time: : 10/13 20:30 Order name: NT PRO-BNP; Complete Time: : 10/13 20:30 Order name: PT-INR; Complete Time: 21: 10/13 20:30 Order name: Troponin (emerg Dept Use Only); Complete Time: : 10/13 20:30 Order name: XRAY Chest (1 view) 10/13 20:50 Order name: Lipase; Complete Time: 21: EDAK 10/13 20:30 Order name: EKG; Complete Time: 10/13 20:30 Order name: Cardiac monitoring; Complete Time: 10/13 20:30 Order name: EKG - Nurse/Tech; Complete Time: 10/13 20:30 Order name: IV Saline Lock; Complete Time: 10/13 20:30 Order name: Labs collected and sent; Complete Time: 10/13 20:30 Order name: O2 Per Protocol; Complete Time: 10/13 20:30 Order name: O2 Sat Monitoring; Complete Time: : Administered Medications: 20:45 Drug: Aspirin Chewable Tablet 324 mg Route: PO; ca1 22:02 Follow up: Response: No adverse reaction ca1 20:45 Drug: Lopressor (metoprolol TARTRATE) 50 mg Route: PO; ca1 22:02 Follow up: Response: No adverse reaction ca1 20:47 Drug: Zofran 4 mg Route: IVP; Site: right antecubital; ca1 22:02 Follow up: Response: No adverse reaction; Nausea is decreased ca1 20:50 Drug: morphine 2 mg {Note: RASS - 0.} Route: IVP; Site: right antecubital; ca1 20:52 Drug: Pepcid 20 mg Route: IVP; Site: right antecubital; ca1 22:02 Follow up: Response: No adverse reaction ca1 21:00 Drug: Lovenox 1 mg/kg Route: Sub-Q; Site: abdomen; ca1 22:02 Follow up: Response: No adverse reaction ca1 21:03 Drug: PlaVIX 300 mg Route: PO; ca1 22:03 Follow up: Response: No adverse reaction ca1 21:04 Drug: morphine 2 mg Route: IVP; Site: right antecubital; ca1 22:02 Follow up: Response: No adverse reaction; Pain is decreased; RASS: Alert and Calm (0) ca1 22:43 Drug: morphine 2 mg Route: IVP; Site: right antecubital; 23:51 Follow up: Response: No adverse reaction; Pain is decreased; RASS: Alert and Calm (0) Disposition: 10/13/19 21:[address] [facility]. Diagnosis are Chest pain, unspecified, Angina pectoris, Essential (primary) hypertension, Obesity, unspecified. - Reason for transfer: Higher level of care. - Accepting physician is to [facility] , cardio. - Condition is Fair. - Problem is new. - Symptoms have improved. Signatures: Dispatcher [employer] EDAK Fausto Zapata MD MD cha Antunez, Elena, RN RN Miguel Harman Willie, Marcia RN RN ca1 Corrections: (The following items were deleted from the chart) 20:50 20:42 LIPASE+C.LAB.BRZ ordered. [facility] 23:52 21:04 10/13/2019 21:[address] [facility]. Diagnosis is Chest pain, unspecified; Angina pectoris; Essential (primary) hypertension; Obesity, unspecified. Reason for transfer: Higher level of care. Accepting physician is to [facility] , cardio. Condition is Fair. Problem is new. Symptoms have improved. jose
[2019-10-13] MEDS ORDERED: CLOPIDOGREL 75 MG TABLET ONE (21:08)
[2019-10-13 21:24] LABS: ALT/SGPT 90 U/L (12-78); AST/SGOT 61 U/L (15-37); Albumin 3.9 g/dL (3.4-5.0); Alkaline Phosphatase 101 U/L (45-117); BUN Blood Urea Nitrogen 14 mg/dL (7-18); Bicarbonate 28 mmol/L (21-32); Bilirubin Direct 0.1 mg/dL (0-0.2); Bilirubin Total 0.3 mg/dL (0.2-1.0); Glucose Level 94 mg/dL (74-106); Lipase 165 U/L (73-393); Magnesium 2.2 mg/dL (1.8-2.4); NT PRO-BNP 31 pg/mL (<125); Potassium 3.7 mmol/L (3.5-5.1); Protein, Total 7.5 g/dL (6.4-8.2); Sodium Level 140 mmol/L (136-145); Troponin (Emerg Dept Use Only) < 0.02 ng/mL (0.0-0.045)
[2019-10-13] MEDS ORDERED: MORPHINE 2 MG/ML SYR ONE (22:40)
[2019-10-14 00:35] VITALS: TEMP 98.7
[2019-10-14 00:40] VITALS: BP 143/107; O2SAT 98
--- NOTE | 2019-10-14 09:25 | RAD REPORT ---
EXAM DESCRIPTION: RAD - Chest Single View - 10/13/2019 8:48 pm CLINICAL HISTORY: CHEST PAIN Chest pain. COMPARISON: Chest Single View dated 11/09/2017 FINDINGS: Portable technique limits examination quality. The lungs are grossly clear. The heart is upper limit normal in size with dual lead pacer device pres ent. No displaced fractures. IMPRESSION: No acute intrathoracic process suspected.
--- NOTE | 2019-10-14 14:21 | EKG ---
Test Date: 2019-10-13 Test Time: 20:16:22 Drupal Web Developer: SHERICE MEASUREMENT RESULTS: Intervals: Rate: 86 CO: 166 QRSD: 90 QT: 382 QTc: 457 [place]: P: 32 CO: 166 QRS: 20 T: 42 INTERPRETIVE STATEMENTS: Normal sinus rhythm Possible Anterior infarct, age undetermined Abnormal ECG Compared to ECG 11/10/2017 07:38:48 Myocardial infarct finding now present Sinus arrhythmia no longer present Electronically Signed On 10-14-19 14:19:19 DIRECTOR OF IT OPERATIONS by Adrian Shay
== END 2019-10-13 23:52 | disposition short-term general hospital (02) ==
LOC: ER 20:06
DX: I20.9 Angina pectoris, unspecified (principal); I10 Essential (primary) hypertension; E66.9 Obesity, unspecified; E78.5 Hyperlipidemia, unspecified; Z72.0 Tobacco use; Z79.82 Long term (current) use of aspirin; Z91.013 Allergy to seafood; Z91.048 Other nonmedicinal substance allergy status; Z95.818 Presence of other cardiac implants and grafts
CPT/HCPCS: 36415; 71045; 80048; 80076; 83690; 83735; 83880; 84484; 85025; 85610; 93005; 96372; 96374; 96375; 99285; J1650; J2270; J2405